=== PATIENT | female | born 1955 | race Caucasian/White ===

== ENCOUNTER 2018-07-13 13:24 | Inpatient (IN) | payer OTHER ==
[~2018-07-13] VITALS: Ht 154.9 cm; Wt 67.3 kg
[~2018-07-13 13:24] MED LIST: ALEN70 PO; CALCAVITDA PO; CITA20 PO; CLON1 PO; DIVA250EC PO; ERGO50000 PO; EZET10 PO; GEMF600 PO; HYDMOR2 PO; IBUP600 PO; LAMO100 PO; LORA.5; Lamictal100 MG PO; Macrobid 100 M100 MG PO; PRAM.5 PO; Prozac20 MG PO; RAMI2.5; ROPI1 PO; Roxicodone5 MG PO; VASCEPA1 GM; VITAMIN D-32000 UNIT PO; Zofran Odt4 MG SL; [UNRECOGNIZED DRUG - OTHER]; [UNRECOGNIZED DRUG - OTHER] PO
[2018-07-13 14:27] LABS: BASOPHILS ABSOLUTE AUTO 0.06 K/mm3 (0.00-0.23); BASOPHILS PERCENT AUTO 1 % (0-2); EOSINOPHILS ABSOLUTE AUTO 0.04 K/mm3 (0.00-0.68); EOSINOPHILS PERCENT AUTO 1 % (0-6); Hematocrit 42.1 % (33.0-51.0); IMMATURE GRAN ABSOLUTE AUTO 0.03 K/mm3 (0.00-0.10); IMMATURE GRAN PERCENT AUTO 1 % (0-1); LYMPHOCYTES ABSOLUTE AUTO 3.17 K/mm3 (0.84-5.20); LYMPHOCYTES PERCENT AUTO 50 % (21-46); MONOCYTES ABSOLUTE AUTO 0.42 K/mm3 (0.16-1.47); MONOCYTES PERCENT AUTO 7 % (4-13); Mean Corpuscular HGB 32.6 pg (26.0-34.0); Mean Corpuscular HGB Conc 33.3 g/dL (31.5-36.5); Mean Corpuscular Volume 98 fL (80-100); Mean Platelet Volume 10.7 fL (9.1-12.4); NEUTROPHILS ABSOLUTE AUTO 2.66 K/mm3 (1.96-9.15); NEUTROPHILS PERCENT AUTO 42 % (41-73); Platelet Count 311 K/mm3 (150-400); RDW Coefficient Variation 14.6 % (11.7-14.2); RDW Standard Deviation 53.1 fL (35.1-46.3); White Blood Cell Count 6.38 K/mm3 (4.00-11.30)
[2018-07-13 14:31] LABS: Anion Gap 8 mmol/L (6-16); Blood Urea Nitrogen 16 mg/dL (8-24); Bun/Creatinine Ratio 16.4 (12.0-20.0); CO2, Blood 26 mmol/L (21-32); Calcium, Blood 8.6 mg/dL (8.5-10.1); Chloride, Blood 98 mmol/L (98-108); Creatinine, Blood 0.98 mg/dL (0.40-1.00); Glomerular Filtration Rate >60 (60-); Glucose, Blood 88 mg/dL (70-99); Sodium, Blood 132 mmol/L (136-145)
[2018-07-13 14:42] LABS: Prothrombin Time Results 10.3 Sec (9.7-11.5)
[2018-07-15] MEDS ORDERED: [UNRECOGNIZED DRUG - OTHER] IV (13:27)
== END 2018-07-15 15:37 | disposition home or self-care (01) | DRG 125 ==
LOC: ER 13:24 → MEDS 17:47
PROVIDERS: Physician Assistant
DX: H54.3 Unqualified visual loss, both eyes (principal); G90.50 Complex regional pain syndrome I, unspecified; E80.20 Unspecified porphyria; E87.1 Hypo-osmolality and hyponatremia; G35 Multiple sclerosis; M81.0 Age-related osteoporosis without current pathological fracture; F31.9 Bipolar disorder, unspecified; K21.9 Gastro-esophageal reflux disease without esophagitis; E78.5 Hyperlipidemia, unspecified; G25.81 Restless legs syndrome; F41.8 Other specified anxiety disorders; E78.1 Pure hyperglyceridemia
CPT/HCPCS: 36415; 70450; 70553; 80048; 85025; 85610; 85730; 90686; 96374; 97165; 97535; 99285-25; A9577; G8987; G8988; G8989; J2930

== ENCOUNTER 2018-07-17 00:36 | Day surgery (SDC) | payer OTHER ==
[~2018-07-17 00:36] MED LIST changes: +[UNRECOGNIZED DRUG - OTHER] IV
== END 2018-07-17 22:42 | disposition home or self-care (01) ==
LOC: ATC 00:36
DX: H54.7 Unspecified visual loss (principal); G35 Multiple sclerosis
CPT/HCPCS: J2930